=== PATIENT | female | born 1960 | race Caucasian/White ===

== ENCOUNTER 2020-08-01 09:01 | Outpatient (CLI) | payer OTHER, SELFPAY ==
--- NOTE | 2020-08-01 17:54 | WPDMETH ---
Methacholine Challenge This is a methacholine challenge test. The test was performed and interpreted in accordance with the 1999 [employer] guidelines. The test was performed with increasing doses of nebulized methacholine using a 2 minute tidal breathing protocol. The best post-methacholine FEV1 values were used to calculate the change from the post diluent FEV1. Findings: Baseline FEV1 2.00 L, 69% predicted. Post diluent FEV1 1.98 L Post 0.025 mg/ml methacholine FEV1 2.13 L, increased 13% Post 0.25 mg/mL methacholine FEV1 1.79 L, decreased 9% Post 2.5 mg/mL methacholine FEV1 1.38 L, decreased 30% Post albuterol nebulization FEV1 1.83 L Impression: The PC20 is 0.82 mg/ml which is categorized as moderate to severe bronchial hyperresponsiveness. There are no prior methacholine challenge studies for comparison Methacholine Procedure Perform Procedure Performed Methacholine Challenge
== END 2020-08-01 09:02 | disposition home or self-care (01) ==
PROVIDERS: PCP Internal Medicine; Visit Provider Internal Medicine Pulmonary Disease
DX: R06.02 Shortness of breath (principal)
CPT/HCPCS: 94070; J7674

== ENCOUNTER 2021-04-12 10:46 | Emergency (ER) | payer OTHER, SELFPAY ==
[2021-04-12 10:53] VITALS: BP 129/61; PULSE 75; RESP 18; TEMP 36.8; O2SAT 100
--- NOTE | 2021-04-12 11:08 | ED.URI ---
HPI - URI/Sore Throat General Chief Complaint: Upper Respiratory Infection Stated Complaint: aches fatigue cough headache Time Seen by Provider: 04/12/21 11:08 Source: patient, RN notes reviewed and old records reviewed Mode of arrival: ambulatory Limitations: no limitations History of Present Illness HPI Narrative: 60-year-old female presents to the [facility] with complaints of body aches, fatigue, cough and headache. Patient states symptoms started yesterday. Patient states that she was recently in [facility] which is a hotspot for Covid right now. Is concerned about Covid. Has no concerned about influenza at this time. Has had the chills. Has felt febrile. Related Data Home Medications Medication Instructions Recorded Confirmed cetirizine 10 mg tablet 10 mg PO DAILY PRN 07/03/20 01/16/21 cyclobenzaprine 5 mg tablet 5 mg PO TID PRN 07/03/20 01/16/21 multivitamin 1 tablet PO DAILY 07/03/20 01/16/21 hydrocodone 5 mg-acetaminophen 325 1 tablet PO Q6H PRN 07/04/20 01/16/21 mg tablet melatonin 5 mg capsule mg PO DAILY PRN cap 07/04/20 01/16/21 zinc sulfate 50 mg zinc (220 mg) 50 mg PO DAILY 07/04/20 01/16/21 tablet azelastine 137 mcg (0.1 %) nasal 2 spray INTRANASAL DAILY ml 09/21/20 01/16/21 spray aerosol cholecalciferol (vitamin D3) 125 10,000 unit PO WEEKLY cap 09/21/20 01/16/21 mcg (5,000 unit) capsule dicyclomine 20 mg tablet 20 mg PO .prn tablet 09/21/20 01/16/21 docusate sodium 100 mg capsule 100 mg PO DAILY PRN 09/21/20 01/16/21 gabapentin 300 mg capsule 300 mg PO DAILY PRN 09/21/20 01/16/21 Allergies Allergy/AdvReac Type Severity Reaction Status Date / Time No Known Allergies Allergy Unverified 01/16/21 15:09 Review of Systems Review of Systems: All systems reviewed & are unremarkable except as noted in HPI and below Constitutional: Constitutional: Reports as per HPI, Reports chills and Reports fever(s) Eyes: Eyes: Reports no additional eye complaints ENT: Reports system reviewed and no additional complaints, except as documented Cardiovascular: Cardiovascular: Reports no additional cardiovascular complaints Respiratory: Respiratory: Reports no additional respiratory complaints, Denies cough and Denies dyspnea Gastrointestinal: Gastrointestinal: Reports no additional gastrointestinal complaints, Denies abdominal pain, Denies nausea and Denies vomiting Musculoskeletal: Musculoskeletal: Reports as per HPI and Reports myalgias Integumentary/Breasts: Skin/Breast: Reports system reviewed and no additional complaints, except as docu Neurologic: Reports system reviewed and no additional complaints, except as documented Psychiatric: Psychiatric: Reports no additional psychiatric complaints Allergic/Immunologic: Allergic/Immunologic: Reports no additional allergic/immunologic complaints [facility] Past Medical History Medical History Abnormal results of pulmonary function studies Constipation Diarrhea Hyperlipemia Irritable bowel syndrome with constipation Low back pain Lower abdominal pain Myalgia Pain in left knee Pain in right hand Pain in right knee Personal history of colonic polyps Radiculopathy SOB (shortness of breath) Surgical History Surgical History History of colon surgery History of hysterectomy Social History Social History Smoking status: Never smoker Alcohol intake: current Alcohol use details: Social Drinker Comments At the time of my signature, I reviewed and agree with the nursing past medical, surgical, social, and family history. There is no relevant family history pertinent to the patient complaint. Exam Const: General: healthy appearing, no acute distress and alert Nutritional Appearance: well nourished Orientation/consciousness: patient oriented x3 Limitations: no limitations HENMT:
== END 2021-04-12 11:38 | disposition home or self-care (01) ==
PROVIDERS: Emergency Provider Nurse Practitioner; PCP Internal Medicine
DX: B34.9 Viral infection, unspecified (principal); E78.5 Hyperlipidemia, unspecified; Z79.891 Long term (current) use of opiate analgesic
CPT/HCPCS: 99211; G0463

== ENCOUNTER → 2021-04-13 04:08 | Outpatient (CLI) | payer OTHER, SELFPAY ==
[2021-04-16 20:51] LABS: SARS-CoV-2 RNA PCR Negative
== END ==
PROVIDERS: PCP Internal Medicine; Visit Provider Nurse Practitioner
DX: R68.89 Other general symptoms and signs (principal); Z20.822 Contact with and (suspected) exposure to COVID-19
CPT/HCPCS: C9803; U0003; U0005

== ENCOUNTER 2021-09-23 13:26 | Emergency (ER) | payer OTHER, SELFPAY ==
[2021-09-23 13:30] VITALS: BP 126/83; PULSE 78; RESP 16; TEMP 36.6; O2SAT 100
--- NOTE | 2021-09-23 13:30 | ED.FEMALEGU ---
HPI - Female Genitourinary General Chief complaint: Urogenital-Female Stated complaint: poss bladder infect Time Seen by Provider: 09/23/21 13:31 Source: patient Mode of arrival: ambulatory Limitations: no limitations History of Present Illness HPI Narrative: Ms. Ball is a 60-year-old female patient presenting to the clinic today with possible UTI x2-3 days She reports she is having lower abdominal pain, burning with urination, and some low back pain. She reports that she gets urinary tract infections annually. Related Data Home Medications Medication Instructions Recorded Confirmed cetirizine 10 mg tablet (Zyrtec) 10 mg PO DAILY PRN 07/03/20 01/16/21 cyclobenzaprine 5 mg tablet 5 mg PO TID PRN 07/03/20 01/16/21 multivitamin (Daily Multi-Vitamin) 1 tablet PO DAILY 07/03/20 01/16/21 hydrocodone 5 mg-acetaminophen 325 1 tablet PO Q6H PRN 07/04/20 01/16/21 mg tablet melatonin 5 mg capsule mg PO DAILY PRN 07/04/20 01/16/21 zinc sulfate 50 mg zinc (220 mg) 50 mg PO DAILY 07/04/20 01/16/21 tablet azelastine 137 mcg (0.1 %) nasal 2 spray intranasal DAILY 09/21/20 01/16/21 spray aerosol cholecalciferol (vitamin D3) 125 10,000 unit PO WEEKLY 09/21/20 01/16/21 mcg (5,000 unit) capsule dicyclomine 20 mg tablet 20 mg PO .prn 09/21/20 01/16/21 docusate sodium 100 mg capsule 100 mg PO DAILY PRN 09/21/20 01/16/21 gabapentin 300 mg capsule 300 mg PO DAILY PRN 09/21/20 01/16/21 Allergies Allergy/AdvReac Type Severity Reaction Status Date / Time No Known Allergies Allergy Unverified 01/16/21 15:09 Review of Systems Review of Systems: Pertinent positives per HPI. Patient denies any fever, chills, rash, headache, visual changes, dizziness, cough, runny nose, sore throat, shortness of breath, chest pain, palpitations, nausea, vomiting, diarrhea, constipation. PMFSH Past Medical History Medical History Abnormal results of pulmonary function studies Constipation Diarrhea Hyperlipemia Irritable bowel syndrome with constipation Low back pain Lower abdominal pain Myalgia Pain in left knee Pain in right hand Pain in right knee Personal history of colonic polyps Radiculopathy SOB (shortness of breath) Surgical History Surgical History History of colon surgery History of hysterectomy Social History Social History Smoking status: Never smoker Alcohol intake: current Alcohol use details: Social Drinker Comments At the time of my signature, I reviewed and agree with the nursing past medical, surgical, social, and family history. There is no relevant family history pertinent to the patient complaint. Exam Narrative: General: Well-developed, well nourished, in no apparent distress. Head: Normocephalic, atraumatic. Cardio: Regular rate and rhythm, s1 and s2 normal, no murmur appreciated. Resp: Clear to auscultation bilaterally, no rhonchi, rales, wheezing or rubs. Abdomen: Soft, pliable, tenderness to palpation over the suprapubic area, bowel sounds present in all quadrants, no organomegly, no CVAT tenderness. Course Course Emergency Course: Portions of this record may have been created with voice recognition software. Level of Care: Express Care Visit Vital Signs Vital signs: Vital signs reviewed MDM - Female Genitourinary MDM Narrative Medical decision making narrative: At the time of visit patient is resting comfortably on the exam table. UA dip was obtained and patient was positive for protein, blood, nitrate, and leukocytes. I will place patient on a prescription for some Bactrim. Supportive measures were discussed with the patient she voiced understanding of discharge instructions. Differential Diagnosis Differential diagnosis: Likely urinary tract infection and cystitis Discharge Plan Discharge Clinical I
== END 2021-09-23 13:47 | disposition home or self-care (01) ==
PROVIDERS: Emergency Provider Nurse Practitioner Family; PCP Internal Medicine
DX: N30.01 Acute cystitis with hematuria (principal); E78.5 Hyperlipidemia, unspecified
CPT/HCPCS: 81003; 87077; 87086; 87186; 99213; G0463

== ENCOUNTER 2022-02-06 09:39 | Emergency (ER) | payer MEDICARE, MEDICAID, SELFPAY ==
[2022-02-06 09:49] VITALS: BP 124/72; PULSE 78; RESP 16; TEMP 36.5; O2SAT 100
--- NOTE | 2022-02-06 10:17 | ED.FEMALEGU ---
HPI - Female Genitourinary General Chief complaint: Urogenital-Female Stated complaint: sore throat bladder infection Time Seen by Provider: 02/06/22 10:05 Source: patient Mode of arrival: ambulatory Limitations: no limitations History of Present Illness HPI Narrative: 61 year old female who presents to [facility] care with complaints of UTI symptoms for the past 3 days. Patient reports that her urine is cloudy for the past 2 days, she also has had some lower tender abdominal discomfort and also some lower back pain. Patient states also that she had sore throat start last pm for which she has been taking Tylenol and Chloraseptic spray and she also reports she took muscle relaxer for her back discomfort. Patient reports no known fevers, chills or sweat. MD elicited complaint: UTI Pertinent past history: recurrent UTIs Onset (ago): day(s) (3) Location of symptoms: suprapubic, low back and other (sore throat also) Related Data Home Medications Medication Instructions Recorded Confirmed cyclobenzaprine 5 mg tablet 5 mg PO TID PRN Muscle Spasm 07/03/20 02/06/22 multivitamin (Daily Multi-Vitamin 1 tablet PO DAILY 07/03/20 02/06/22 tablet) melatonin 5 mg capsule 5 mg PO DAILY 07/04/20 02/06/22 zinc sulfate 50 mg zinc (220 mg) 50 mg PO DAILY 07/04/20 02/06/22 tablet cholecalciferol (vitamin D3) 125 10,000 unit PO WEEKLY 09/21/20 02/06/22 mcg (5,000 unit) capsule dicyclomine 20 mg tablet 20 mg PO .prn 09/21/20 02/06/22 docusate sodium 100 mg capsule 100 mg PO DAILY PRN Constipation 09/21/20 02/06/22 Allergies Allergy/AdvReac Type Severity Reaction Status Date / Time Penicillins Allergy Rash Verified 02/06/22 09:59 Review of Systems Review of Systems: CONSTITUTIONAL: Denies fever, chills, or sweats. CARDIOVASCULAR: Denies chest pain, palpitations, or edema. RESPIRATORY: Denies cough or dyspnea does state some sore throat pain GASTROINTESTINAL: supra pubic abdominal pain,no nausea, vomiting, or diarrhea. GENITOURINARY: Reports dysuria, frequency, urgency. Denies flank pain or hematuria, states low back curry SKIN: Denies rash or itching. MUSCULOSKELETAL: Positive for low back pain or myalgia. Denies CVA tenderness NEUROLOGIC: Denies headache All systems reviewed & are unremarkable except as noted in HPI and below PMFSH Past Medical History Medical History Abnormal results of pulmonary function studies Constipation Diarrhea Hyperlipemia Irritable bowel syndrome with constipation Low back pain Lower abdominal pain Myalgia Pain in left knee Pain in right hand Pain in right knee Personal history of colonic polyps Radiculopathy SOB (shortness of breath) Surgical History Surgical History History of colon surgery History of hysterectomy Social History Social History Smoking status: Never smoker Alcohol intake: current Alcohol use details: Social Drinker Comments At time of signature, agree with nursing past medical, surgical, social and family history. There is no relevant family history pertinent to the presenting complaint Exam Narrative: GENERAL: Well-appearing, well-nourished, and in no acute distress. HEAD: Normocephalic, atraumatic. NECK: Supple. no lymphadenopathy throat red with post nasal drainage, no lesions or exudates, no tonsil swelling noted. CHEST: Clear to auscultation. No respiratory distress.SAO2 100% on room air HEART: Regular rate and rhythm. No murmur heard. Normal peripheral pulses. ABDOMEN: Soft, nontender, nondistended, normal active bowel sounds. No CVA tenderness. reports back pain. EXTREMITIES: Normal range of motion. No edema. SKIN: Warm, dry, no rash. NEURO: No focal deficits. Alert and oriented x3. Course Course Emergency Course: Patient is aware of diagnosis, understands and agrees to treatment plan.? Antici
== END 2022-02-06 10:39 | disposition home or self-care (01) ==
PROVIDERS: Emergency Provider Registered Nurse; PCP Internal Medicine
DX: N39.0 Urinary tract infection, site not specified (principal); J02.9 Acute pharyngitis, unspecified; E78.5 Hyperlipidemia, unspecified
CPT/HCPCS: 81003; 87077; 87081; 87086; 87186; 87880; 99213; G0463

== ENCOUNTER 2022-03-04 13:56 | Emergency (ER) | payer MEDICARE, MEDICAID, SELFPAY ==
[2022-03-04 14:02] VITALS: BP 119/63; PULSE 71; RESP 20; TEMP 36.9; O2SAT 98
--- NOTE | 2022-03-04 14:09 | ED.FEMALEGU ---
HPI - Female Genitourinary General Chief complaint: Urogenital-Female Stated complaint: bladder infection Time Seen by Provider: 03/04/22 14:20 Source: patient and RN notes reviewed Mode of arrival: ambulatory Limitations: no limitations History of Present Illness HPI Narrative: 61-year-old female presents concern for urinary infection. She reports 2-3 day history of frequency, urgency, dysuria, fatigue, general malaise. She reports history of urinary tract. She reports she was treated with Bactrim 1 month ago for urinary tract infection that she feels mostly resolved. She denies fever, sweats. Reports chills. She denies upper respiratory symptoms, abdominal pain, vomiting or diarrhea. She denies cough, shortness of breath MD elicited complaint: UTI Related Data Home Medications Medication Instructions Recorded Confirmed multivitamin (Daily Multi-Vitamin 1 tablet PO DAILY 07/03/20 03/04/22 tablet) melatonin 5 mg capsule 5 mg PO DAILY 07/04/20 03/04/22 zinc sulfate 50 mg zinc (220 mg) 50 mg PO DAILY 07/04/20 02/06/22 tablet cholecalciferol (vitamin D3) 125 10,000 unit PO WEEKLY 09/21/20 03/04/22 mcg (5,000 unit) capsule docusate sodium 100 mg capsule 100 mg PO DAILY PRN Constipation 09/21/20 03/04/22 Allergies Allergy/AdvReac Type Severity Reaction Status Date / Time Penicillins Allergy Rash Verified 03/04/22 14:20 Review of Systems Review of Systems: CONSTITUTIONAL: Reports malaise, chills. Denies sweats, or fever. CARDIOVASCULAR: Denies chest pain, palpitations, or edema. RESPIRATORY: Denies cough or dyspnea. GASTROINTESTINAL: Denies abdominal pain, nausea, vomiting, diarrhea GENITOURINARY: Reports dysuria, frequency, urgency, suprapubic discomfort. Denies flank pain or hematuria. SKIN: Denies rash or itching. MUSCULOSKELETAL: Denies back pain or myalgia. All systems reviewed & are unremarkable except as noted in HPI and below PMFSH Past Medical History Medical History Abnormal results of pulmonary function studies Constipation Diarrhea Hyperlipemia Irritable bowel syndrome with constipation Low back pain Lower abdominal pain Myalgia Pain in left knee Pain in right hand Pain in right knee Personal history of colonic polyps Radiculopathy SOB (shortness of breath) Surgical History Surgical History History of colon surgery History of hysterectomy Social History Social History Smoking status: Never smoker Alcohol intake: current Alcohol use details: Social Drinker Comments At time of signature, agree with nursing past medical, surgical, social and family history. There is no relevant family history pertinent to the presenting complaint Exam Narrative: GENERAL: Well-appearing, well-nourished, and in no acute distress. HEAD: Normocephalic. EYES: PERRLA, conjunctivae clear. NECK: Supple. No lymphadenopathy CHEST: Clear to auscultation. No respiratory distress. HEART: Regular rate and rhythm. ABDOMEN: Soft, nontender upon palpation, nondistended, normal active bowel sounds, no palpable or pulsatile masses, no guarding. No CVA tenderness SKIN: Warm, dry, no rash. NEURO: Alert and oriented x3. PSYCH: Normal mood and affect Course Course Emergency Course: Discussed UA findings with the patient, discussed waiting for culture to start antibiotic probiotic now. Patient would prefer to started now given that she is feeling poorly. Patient is aware of diagnosis, understands and agrees to treatment plan. Anticipatory guidance given. Patient agrees to follow-up as directed and is aware of reasons to seek care at the emergency department. Portions of this record may have been created with voice recognition software Level of Care: Express Care Visit Vital Signs Vital signs: Reviewed. MDM - Female Genitourinary
== END 2022-03-04 14:48 | disposition home or self-care (01) ==
PROVIDERS: Emergency Provider Nurse Practitioner; PCP Internal Medicine
DX: R35.0 Frequency of micturition (principal); R30.0 Dysuria; R39.15 Urgency of urination; E78.5 Hyperlipidemia, unspecified
CPT/HCPCS: 81003; 87086; 87088; 99213; G0463

== ENCOUNTER 2022-06-27 14:52 | Emergency (ER) | payer MEDICARE, MEDICAID, SELFPAY ==
[2022-06-27 15:01] VITALS: BP 135/84; PULSE 69; RESP 18; TEMP 36.5; O2SAT 99
--- NOTE | 2022-06-27 15:02 | ED.GENADULT ---
HPI - General Adult General Chief complaint: Urogenital-Female Stated complaint: Urinary Problem Source: patient and RN notes reviewed History of Present Illness HPI narrative: 61 year female presents to urgent care with complaints of dysuria for the last month. Patient states she began taking azo pills with minimal relief and then has been taking cranberry pills for the last 3 weeks. Patient states her symptoms are intermittent. Denies any fevers, chills, chest pain, shortness of breath, abdominal pain, or vomiting. Some parts of this dictation were generated by voice recognition software and may contain typographical and/or grammatical inaccuracies. Related Data Home Medications Medication Instructions Recorded Confirmed multivitamin (Daily Multi-Vitamin 1 tablet PO DAILY 07/03/20 03/04/22 tablet) albuterol sulfate 90 mcg/actuation inhalation 06/27/22 aerosol inhaler Allergies Allergy/AdvReac Type Severity Reaction Status Date / Time Penicillins Allergy Rash Verified 03/04/22 14:20 Review of Systems Review of Systems: CONSTITUTIONAL: Denies fever, chills, or sweats. EYES: Denies visual changes, redness, or discharge. ENT: Denies otalgia and sore throat CARDIOVASCULAR: Denies chest pain, palpitations, or edema. RESPIRATORY: Denies cough or dyspnea. GASTROINTESTINAL: Denies abdominal pain, nausea, vomiting, or diarrhea. GENITOURINARY: Dysuria SKIN: Denies rash or itching. MUSCULOSKELETAL: Denies back pain, joint pain, or myalgia. NEUROLOGIC: Denies headache, numbness, or weakness. [facility] Past Medical History Medical History Abnormal results of pulmonary function studies Constipation Diarrhea Hyperlipemia Irritable bowel syndrome with constipation Low back pain Lower abdominal pain Myalgia Pain in left knee Pain in right hand Pain in right knee Personal history of colonic polyps Radiculopathy SOB (shortness of breath) Surgical History Surgical History History of colon surgery History of hysterectomy Social History Social History Smoking status: Never smoker Alcohol intake: current Alcohol use details: Social Drinker Comments At the time of my signature, I reviewed and agree with the nursing past medical, surgical, social, and family history. There is no relevant family history pertinent to the patient complaint. Exam Narrative: GENERAL: This is a well-nourished, well-developed patient, in no apparent distress. HEAD: normocephalic, atraumatic. EYES: PERRL. Sclera clear/white. Vision is grossly intact. EARS: External ears normal, auditory canals clear and without drainage, TMs normal without perforation. Hearing grossly intact. NOSE: External nose normal with no obvious nasal discharge, nares without redness, no rhinorrhea. THROAT: Mucous membranes moist, posterior pharynx clear. NECK: Neck supple, non-tender without lymphadenopathy, masses or thyromegaly. CARDIOVASCULAR: Regular rate and rhythm without murmurs, gallops, or rubs. RESPIRATORY: Clear to auscultation. Breath sounds equal bilaterally. No wheezes, rales, or rhonchi. GASTROINTESTINAL: Abdomen soft, non-tender, nondistended. Bowel sounds are active. No hepato-splenomegaly, or palpable masses. No guarding. SKIN: warm, intact with no suspicious lesions or rash, good texture and turgor. NEURO: awake, alert, and oriented to person, place and time. There were no obvious focal neurologic abnormalities. EXTREMITIES: No clubbing, cyanosis, or edema. No joint tenderness, effusion, or edema noted. BACK: Nontender without deformity or crepitance. No flank tenderness. Course Course Level of Care: Express Care Visit Vital Signs Vital signs: Vital Signs Temperature 97.7 F 06/27/22 15:01 Pulse Rate 69 06/27/22 15:01 Respiratory Rate 18 06/27/22 15:01 Blood Pres
== END 2022-06-27 15:37 | disposition home or self-care (01) ==
PROVIDERS: Emergency Provider Nurse Practitioner Family; PCP Internal Medicine
DX: R30.0 Dysuria (principal)
CPT/HCPCS: 81003; 87086; 87088; 99213; G0463

== ENCOUNTER 2023-01-03 09:08 | Emergency (ER) | payer MEDICARE, MEDICAID, SELFPAY ==
[2023-01-03 09:21] VITALS: BP 117/77; PULSE 66; RESP 16; TEMP 36.3; O2SAT 99
[2023-01-03 09:22] VITALS: BP 117/77; PULSE 66; RESP 16; TEMP 36.3; O2SAT 99
--- NOTE | 2023-01-03 09:39 | ED.FEMALEGU ---
HPI - Female Genitourinary General Chief complaint: Urogenital-Female Stated complaint: Urinary Problem Time Seen by Provider: 01/03/23 09:39 Source: patient, RN notes reviewed and old records reviewed Mode of arrival: ambulatory Limitations: no limitations History of Present Illness HPI Narrative: 62 year old female since to Express Care with complaints of lower back pain, fatigue, pain with urination and also burning with urination with highest temp noted 99.9F since Friday. Patient reports that she has some frequency and urgency and also some suprapubic tenderness. Patient denies any concern for STDs denies any vaginal discharge or any vaginal itching. Patient denies any nausea vomiting or diarrhea MD elicited complaint: UTI Pertinent past history: other (past UTI) Onset (ago): day(s) (2) Severity scale (1-10): 5 Quality of pain: burning and aching Vaginal discharge: none Related Data Home Medications Medication Instructions Recorded Confirmed multivitamin (Daily Multi-Vitamin 1 tablet PO DAILY 07/03/20 01/03/23 tablet) celecoxib 200 mg capsule mg 01/03/23 docusate sodium 100 mg capsule mg PO 01/03/23 folic acid 1 mg tablet 01/03/23 methotrexate sodium 2.5 mg tablet mg 01/03/23 omeprazole 40 mg capsule,delayed mg 01/03/23 release Allergies Allergy/AdvReac Type Severity Reaction Status Date / Time Penicillins Allergy Rash Verified 01/03/23 09:34 Review of Systems Review of Systems: CONSTITUTIONAL: Denies fever, chills, or sweats. CARDIOVASCULAR: Denies chest pain, palpitations, or edema. RESPIRATORY: Denies cough or dyspnea. GASTROINTESTINAL: Supra pubic abdominal pain, no nausea, vomiting, or diarrhea. GENITOURINARY: Reports dysuria, frequency, urgency. Denies flank pain or hematuria. SKIN: Denies rash or itching. MUSCULOSKELETAL: Reports low back pain or myalgia. Denies CVA tenderness NEUROLOGIC: Denies headache All systems reviewed & are unremarkable except as noted in HPI and below PMFSH Past Medical History Medical History Abnormal results of pulmonary function studies Constipation Diarrhea Hyperlipemia Irritable bowel syndrome with constipation Low back pain Lower abdominal pain Myalgia Pain in left knee Pain in right hand Pain in right knee Personal history of colonic polyps Radiculopathy SOB (shortness of breath) Surgical History Surgical History History of colon surgery History of hysterectomy Social History Social History Smoking status: Never smoker Alcohol intake: current Alcohol use details: Social Drinker Comments At time of signature, agree with nursing past medical, surgical, social and family history. There is no relevant family history pertinent to the presenting complaint Exam Narrative: GENERAL: Well-appearing, well-nourished, and in no acute distress. HEAD: Normocephalic, atraumatic. NECK: Supple. no lymphadenopathy CHEST: Clear to auscultation. No respiratory distress.SAO2 99% on room air HEART: Regular rate and rhythm. No murmur heard. Normal peripheral pulses. ABDOMEN: Soft, supra pubic tender, nondistended, normal active bowel sounds. No CVA tenderness, reports low back pain dysuria, frequency and urgency of urination. EXTREMITIES: Normal range of motion. No edema. SKIN: Warm, dry, no rash. NEURO: No focal deficits. Alert and oriented x3. Course Course Emergency Course: Patient is aware of diagnosis, understands and agrees to treatment plan.? Anticipatory guidance given.? Patient agrees to follow-up as directed and is aware of reasons to seek care at the emergency department. Portions of this record may have been created with voice recognition software Level of Care: Express Care Visit Vital Signs Vital signs: Vital Signs Temperature 36.3 C L 01/03/23 09:2
== END 2023-01-03 10:06 | disposition home or self-care (01) ==
PROVIDERS: Emergency Provider Registered Nurse; PCP Internal Medicine
DX: N39.0 Urinary tract infection, site not specified (principal); E78.5 Hyperlipidemia, unspecified
CPT/HCPCS: 81003; 87077; 87086; 87186; 99213; G0463

== ENCOUNTER 2023-08-22 09:03 | Emergency (ER) | payer MEDICARE, MEDICAID, SELFPAY ==
--- NOTE | 2023-08-22 09:06 | ED.URI ---
HPI - URI/Sore Throat General Chief Complaint: Urogenital-Female Stated Complaint: poss bladder infection/throat Time Seen by Provider: 08/22/23 10:08 Source: patient, RN notes reviewed and old records reviewed Mode of arrival: ambulatory Limitations: no limitations History of Present Illness HPI Narrative: 62-year-old female presents to the [facility] with complaints of urinary symptoms since Friday, 2 days. Reports burning, urgency and low back discomfort. Patient denies any fevers, nausea vomiting. Patient states that she stop taking methotrexate because she read on [employer] that it causes UTIs. Onset (ago): day(s) (2) Treatments prior to arrival: none Related Data Home Medications Medication Instructions Recorded Confirmed multivitamin (Daily Multi-Vitamin 1 tablet PO DAILY 07/03/20 08/22/23 tablet) celecoxib 200 mg capsule 200 mg PO DAILY 01/03/23 08/22/23 docusate sodium 100 mg capsule 100 mg PO DAILY 01/03/23 08/22/23 folic acid 1 mg tablet 1 mg PO DAILY 01/03/23 08/22/23 omeprazole 40 mg capsule,delayed 40 mg PO DAILY 01/03/23 08/22/23 release cetirizine 10 mg tablet (Zyrtec) 10 mg PO DAILY 08/22/23 08/22/23 cyclobenzaprine 5 mg tablet 5 mg PO TID 08/22/23 08/22/23 methylprednisolone 4 mg tablets in 4 mg PO PRN PRN Pain 08/22/23 08/22/23 a dose pack Allergies Allergy/AdvReac Type Severity Reaction Status Date / Time Penicillins Allergy Rash Verified 08/22/23 10:03 Review of Systems Review of Systems: All systems reviewed & are unremarkable except as noted in HPI and below Constitutional: Constitutional: Reports no additional constitutional complaints Eyes: Eyes: Reports no additional eye complaints ENT: Reports system reviewed and no additional complaints, except as documented Cardiovascular: Cardiovascular: Reports no additional cardiovascular complaints, Denies chest pain and Denies dyspnea Respiratory: Respiratory: Reports no additional respiratory complaints, Denies chest congestion, Denies cough and Denies dyspnea Gastrointestinal: Gastrointestinal: Reports no additional gastrointestinal complaints, Denies abdominal pain, Denies nausea and Denies vomiting Genitourinary: Genitourinary: Reports as per HPI and Reports dysuria Musculoskeletal: Musculoskeletal: Reports no additional musculoskeletal complaints Integumentary/Breasts: Skin/Breast: Reports system reviewed and no additional complaints, except as docu Neurologic: Reports system reviewed and no additional complaints, except as documented Psychiatric: Psychiatric: Reports no additional psychiatric complaints Allergic/Immunologic: Allergic/Immunologic: Reports no additional allergic/immunologic complaints PMFSH Past Medical History Medical History Abnormal results of pulmonary function studies Constipation Diarrhea Hyperlipemia Irritable bowel syndrome with constipation Low back pain Lower abdominal pain Myalgia Pain in left knee Pain in right hand Pain in right knee Personal history of colonic polyps Radiculopathy SOB (shortness of breath) Surgical History Surgical History History of colon surgery History of hysterectomy Social History Social History Smoking status: Never smoker Alcohol intake: current Alcohol use details: Social Drinker Comments At the time of my signature, I reviewed and agree with the nursing past medical, surgical, social, and family history. There is no relevant family history pertinent to the patient complaint. Exam Const: General: cooperative, healthy appearing, comfortable, no acute distress, well developed, alert and well nourished Nutritional Appearance: well nourished Orientation/consciousness: patient oriented x3 Limitations: no limitations HENMT: Head: normal to inspection Ears: hearing grossly normal bilater
[2023-08-22 09:15] VITALS: BP 148/75; PULSE 73; RESP 18; TEMP 37; O2SAT 99
== END 2023-08-22 10:26 | disposition home or self-care (01) ==
PROVIDERS: Emergency Provider Nurse Practitioner; PCP Internal Medicine
DX: N39.0 Urinary tract infection, site not specified (principal); B96.4 Proteus (mirabilis) (morganii) as the cause of diseases classified elsewhere; R09.82 Postnasal drip
CPT/HCPCS: 81003; 87077; 87081; 87086; 87088; 87186; 87880; 99213; G0463

== ENCOUNTER 2023-09-28 16:49 | Emergency (ER) | payer MEDICARE, MEDICAID, SELFPAY ==
[2023-09-28 17:01] VITALS: BP 140/76; PULSE 69; RESP 16; TEMP 36.6; O2SAT 99
--- NOTE | 2023-09-28 17:02 | ED.URI ---
HPI - URI/Sore Throat General Chief Complaint: Upper Respiratory Infection Stated Complaint: throat/congestion Time Seen by Provider: 09/28/23 17:03 History of Present Illness HPI Narrative: 62-year-old female presented for complaint of sore throat, headache, fatigue, cough and congestion. Onset 2 days. She has taken nighttime cough medicine, Mucinex and a dose of erythromycin she had left over from previous illness for symptoms. Denies shortness of breath, wheezing nausea vomiting, diarrhea, fevers or chills. Related Data Home Medications Medication Instructions Recorded Confirmed multivitamin (Daily Multi-Vitamin 1 tablet PO DAILY 07/03/20 08/22/23 tablet) celecoxib 200 mg capsule 200 mg PO DAILY 01/03/23 08/22/23 folic acid 1 mg tablet 1 mg PO DAILY 01/03/23 08/22/23 omeprazole 40 mg capsule,delayed 40 mg PO DAILY 01/03/23 08/22/23 release cetirizine 10 mg tablet (Zyrtec) 10 mg PO DAILY 08/22/23 08/22/23 cyclobenzaprine 5 mg tablet 5 mg PO TID 08/22/23 08/22/23 Allergies Allergy/AdvReac Type Severity Reaction Status Date / Time Penicillins Allergy Rash Verified 08/22/23 10:03 Review of Systems Review of Systems: CONSTITUTIONAL: Denies body aches, fever, chills, or sweats. EYES: Denies visual changes, redness, or discharge. ENT: reports rhinorrhea, sore throat denies otalgia. CARDIOVASCULAR: Denies chest pain, palpitations, or edema. RESPIRATORY: reports cough Denies dyspnea. GASTROINTESTINAL: Denies abdominal pain, nausea, vomiting, or diarrhea. SKIN: Denies rash, itching, or wounds. MUSCULOSKELETAL: Denies back pain, joint pain, or myalgia. NEUROLOGIC: Denies headache PMFSH Past Medical History Medical History Abnormal results of pulmonary function studies Constipation Diarrhea Hyperlipemia Irritable bowel syndrome with constipation Low back pain Lower abdominal pain Myalgia Pain in left knee Pain in right hand Pain in right knee Personal history of colonic polyps Radiculopathy SOB (shortness of breath) Surgical History Surgical History History of colon surgery History of hysterectomy Social History Social History Smoking status: Never smoker Alcohol intake: current Alcohol use details: Social Drinker Exam Narrative: GENERAL: well-appearing, no acute distress. EYES: conjunctivae clear ENT: Mucous membranes moist. TM pearly francisco with normal light reflex bilaterally; no tragal tenderness. Oropharynx erythematous without lesions. Tonsils absent. No drooling, no hoarseness, no trismus, uvula midline. No tripod positioning, hot potato voice, or soft palate swelling. NECK: Supple. No lymphadenopathy CHEST: Clear to auscultation, breath sounds equal. No respiratory distress, speaks in full sentences. HEART: Regular rate and rhythm. No murmur heard. SKIN: Warm, dry, no rash. NEURO: Alert and oriented x3. Course Course Emergency Course: Patient is aware of diagnosis, understands and agrees to treatment plan. Anticipatory guidance given. Patient agrees to follow-up as directed and is aware of reasons to seek care at the emergency department. Portions of this record may have been created with voice recognition software Level of Care: Express Care Visit MDM - URI/Sore Throat MDM Narrative Medical decision making narrative: neg strep result reviewed with pt. Advise supportive treatments. Patient is appropriate for outpatient treatment and follow-up. Differential Diagnosis Differential diagnosis: Likely upper respiratory infection, viral infection and pharyngitis Discharge Plan Discharge Clinical Impression: Upper respiratory infection Patient Disposition: Home, Self-Care Condition: Stable Instructions: Antibiotic Form, Upper Respiratory Infection (ED) Additional Instructions:
== END 2023-09-28 17:38 | disposition home or self-care (01) ==
PROVIDERS: Emergency Provider Nurse Practitioner Family; PCP Internal Medicine
DX: J06.9 Acute upper respiratory infection, unspecified (principal); E78.5 Hyperlipidemia, unspecified
CPT/HCPCS: 87081; 87880; 99213; G0463

== ENCOUNTER 2024-03-20 13:06 | Emergency (ER) | payer MEDICARE, MEDICAID, SELFPAY ==
[2024-03-20 13:14] VITALS: BP 115/69; PULSE 79; RESP 16; TEMP 36.6; O2SAT 100
--- NOTE | 2024-03-20 13:31 | ED.URI ---
HPI - URI/Sore Throat General Chief Complaint: Upper Respiratory Infection Stated Complaint: Cough/Congestion/Sore Throat/Ear Pain History of Present Illness HPI Narrative: Patient presents with a cough and nasal congestion for the past 10 days. No shortness of breath no chest pain patient has taken multiple [id number] some medicines for her symptoms with no relief. Related Data Home Medications Medication Instructions Recorded Confirmed multivitamin (Daily Multi-Vitamin 1 tablet PO DAILY 07/03/20 08/22/23 tablet) celecoxib 200 mg capsule 200 mg PO DAILY 01/03/23 08/22/23 folic acid 1 mg tablet 1 mg PO DAILY 01/03/23 08/22/23 omeprazole 40 mg capsule,delayed 40 mg PO DAILY 01/03/23 08/22/23 release cetirizine 10 mg tablet (Zyrtec) 10 mg PO DAILY 08/22/23 08/22/23 cyclobenzaprine 5 mg tablet 5 mg PO TID 08/22/23 08/22/23 albuterol 90 mcg-budesonide 80 inh inhalation 03/20/24 mcg/actuation HFA aerosol inhaler (Airsupra) estradiol 0.05 mg/24 hr semiweekly 03/20/24 transdermal patch hydroxychloroquine 200 mg tablet mg PO 03/20/24 prednisone 5 mg tablet mg 03/20/24 valacyclovir 500 mg tablet mg 03/20/24 Allergies Allergy/AdvReac Type Severity Reaction Status Date / Time Penicillins Allergy Rash Verified 03/20/24 13:07 Review of Systems Review of Systems: CONSTITUTIONAL: Denies chills, or sweats. Reports fever and generalized body aches EYES: Denies visual changes, redness, or discharge. ENT: Denies otalgia. Reports nasal congestion runny nose and sore throat CARDIOVASCULAR: Denies chest pain, palpitations, or edema. RESPIRATORY: Denies dyspnea. Reports occasional cough GASTROINTESTINAL: Denies abdominal pain, nausea, vomiting, or diarrhea. GENITOURINARY: Denies dysuria or hematuria. SKIN: Denies rash or itching. MUSCULOSKELETAL: Denies back pain, joint pain, or myalgia. Reports generalized body aches NEUROLOGIC: Denies headache, numbness, or weakness. PSYCHIATRIC: Denies anxiety or depression. [facility] Past Medical History Medical History Abnormal results of pulmonary function studies Constipation Diarrhea Hyperlipemia Irritable bowel syndrome with constipation Low back pain Lower abdominal pain Myalgia Pain in left knee Pain in right hand Pain in right knee Personal history of colonic polyps Radiculopathy SOB (shortness of breath) Surgical History Surgical History History of colon surgery History of hysterectomy Social History Social History Smoking status: Never smoker Alcohol intake: current Alcohol use details: Social Drinker Comments At time of signature, agree with nursing past medical, surgical, social and family history. There is no relevant family history pertinent to the presenting complaint Exam Narrative: The patient is a well-developed, well-nourished in no acute distress. SKIN: Skin is warm and dry without erythema, swelling or exudate. There is good turgor. No tenting. HEAD: Atraumatic. Normocephalic. No temporal or scalp tenderness. EYES: Moist and bright. Sclera and conjunctivae normal. No discharge. PERRLA. Extraocular motions intact. Gross visual acuity intact. EARS: Pinna is normal shape and contour. Clear external auditory canals. TM pearly francis with good cone of light, no erythema or suppuration. Bilateral cerumen noted no gross hearing deficit. NOSE: pink, moist mucosa with good air movement. Clear rhinorrhea without nasal flaring. Septum midline. Mouth: moist mucous membranes. THROAT; mild erythema noted to posterior oropharynx with moderate postnasal drainage. Without exudate or ulceration.. Uvula midline. Normal movement of soft palate. NECK: Supple and nontender with full range of motion without discomfort. No meningeal signs. LUNGS: Equal and bilateral breath sounds without wheezes, rales or rhonchi. CHEST: The chest wall is without retractions or use of accessory muscles. HEART: Has a regular rate and rhythm without murmur, gallops, click or rub. ABDOMEN: Soft, nontender with positive active bowel sounds. No rebound tenderness. EXTREMITIES: Without cyanosis, clubbing or edema. Equal 2+ distal pulses and 2 second capillary refill noted. NEUROLOGIC: alert, active, . The patient moves all extremities with normal muscle strength. Normal muscle tone is noted. Normal coordination is noted. NO focal neurological findings noted. Course Course Level of Care: Express Care Visit Vital Signs Vital signs: Vital Signs Temperature 36.6 C 03/20/24 13:14 Pulse Rate 79 03/20/24 13:14 Respiratory Rate 16 03/20/24 13:14 Blood Pressure 115/69 03/20/24 13:14 Pulse Oximetry 100 03/20/24 13:14 Oxygen Delivery Room Air 03/20/24 13:14 Temperature 36.6 C 03/20/24 13:14 Pulse Rate 79 03/20/24 13:14 Respiratory Rate 16 03/20/24 13:14 Blood Pressure 115/69 03/20/24 13:14 Pulse Oximetry 100 03/20/24 13:14 Oxygen Delivery Room Air 03/20/24 13:14 Discharge Plan Discharge Clinical Impression: Asthma Patient Disposition: Home, Self-Care Condition: Stable Instructions: Antibiotic Form Additional Instructions: Increase fluids and rest 1. Bronchitis will generally resolve on it's own and may take a few weeks. Bronchitis is usually caused by a virus, but sometimes it may be bacterial. Antibiotics generally do not help bronchitis go away faster. Yellow or green mucous, does not always mean bacterial. If you are prescribed an antibiotic for your symptoms be sure to take the entire course of antibioitics. Take with food. It is also suggested to take with yogurt or a probiotic to decrease GI side effects. You may also be prescribed a steroid, if so, be sure to take entire course, first thing in the morning with food. 2. Rest and drink lots of fluids. Maintain a good diet, with foods rich in vitamins and minerals, and lots of fruits and vegetables. 3. Drinking hot tea, warm tea with honey, sucking on cough drops or hard candy, throat lozenges may help with sore throat. 4. OTC cough and cold medications are okay to take for your symptoms, including Mucinex expectorant. 5. If you have high BP, Coricidin HBP is behind the counter , you may ask your pharmacist for this. Otherwise, avoid medications that have a D at the end or a decongestant in them. These medications may increase your BP. 6. Breathing in warm, moist air, such as in the shower or a humidifier at your bedside or in your home. 7. Avoid smoking or being around those who smoke. 8. Protect yourself and others, cover your mouth when you cough and sneeze, and always wash your hands to prevent the spread of germs, if you are unable to, use hand garment tag stringer. . . Prescriptions: New cefdinir 300 mg capsule 300 mg PO Q12H 7 Days Qty: 14 0RF No Action celecoxib 200 mg capsule 200 mg PO DAILY omeprazole 40 mg capsule,delayed release(DR/EC) 40 mg PO DAILY folic acid 1 mg tablet 1 mg PO DAILY cetirizine [Zyrtec] 10 mg Tablet 10 mg PO DAILY cyclobenzaprine 5 mg Tablet 5 mg PO TID prednisone 5 mg tablet estradiol 0.05 mg/24 hr patch semiweekly valacyclovir 500 mg tablet hydroxychloroquine 200 mg tablet PO Airsupra 90-80 mcg/actuation HFA aerosol inhaler INHALATION multivitamin [Daily Multi-Vitamin] Tablet 1 tablet PO DAILY montelukast 10 mg tablet 10 mg PO DAILY Qty: 30 6RF Follow-up/Referrals: Douglas,Kris Valdez MD [Primary Care Provider] -
== END 2024-03-20 13:35 | disposition home or self-care (01) ==
PROVIDERS: Emergency Provider Nurse Practitioner Family; PCP Internal Medicine
DX: J45.909 Unspecified asthma, uncomplicated (principal); E78.5 Hyperlipidemia, unspecified; Z79.899 Other long term (current) drug therapy
CPT/HCPCS: 99213; G0463

== ENCOUNTER 2024-03-22 12:11 | Emergency (ER) | payer MEDICARE, MEDICAID, SELFPAY ==
[2024-03-22 12:15] VITALS: BP 122/58; PULSE 74; RESP 16; TEMP 36.7; O2SAT 100
--- NOTE | 2024-03-22 12:20 | ED.NAVMDI ---
HPI - Nausea/Vomiting/Diarrhea General Chief complaint: Upper Respiratory Infection Stated complaint: Diarrhea Time Seen by Provider: 03/22/24 12:35 Source: patient and RN notes reviewed Mode of arrival: ambulatory Limitations: no limitations History of Present Illness HPI Narrative: 63-year-old female presents with concern for diarrhea after taking an antibiotic. She reports she was seen here 3 days ago and was prescribed an antibiotic for asthma and bronchitis. She had been sick for 2 weeks. Reports she has been taking the antibiotic and has been having a lot of diarrhea. She is requesting a new antibiotic. She reports she takes prednisone daily for her rheumatoid arthritis. She reports she has been using her albuterol inhaler. She denies shortness of breath. She reports she has been feeling generally unwell, has not measured a fever. MD elicited complaint: diarrhea Related Data Home Medications Medication Instructions Recorded Confirmed multivitamin (Daily Multi-Vitamin 1 tablet PO DAILY 07/03/20 03/22/24 tablet) celecoxib 200 mg capsule 200 mg PO DAILY 01/03/23 03/22/24 folic acid 1 mg tablet 1 mg PO DAILY 01/03/23 03/22/24 omeprazole 40 mg capsule,delayed 40 mg PO DAILY 01/03/23 03/22/24 release cetirizine 10 mg tablet (Zyrtec) 10 mg PO DAILY 08/22/23 03/22/24 cyclobenzaprine 5 mg tablet 5 mg PO TID PRN Muscle Spasm 08/22/23 03/22/24 albuterol 90 mcg-budesonide 80 2 inh inhalation Q4-6H PRN 03/20/24 03/22/24 mcg/actuation HFA aerosol inhaler Shortness Of Breath Or Wheezing (Airsupra) estradiol 0.05 mg/24 hr semiweekly 0.05 mg transdermal 2XW 03/20/24 03/22/24 transdermal patch hydroxychloroquine 200 mg tablet 200 mg PO DAILY 03/20/24 03/22/24 prednisone 5 mg tablet 5 - 10 mg PO DAILY 03/20/24 03/22/24 estradiol 1 mg tablet 1 mg PO DAILY 03/22/24 03/22/24 Allergies Allergy/AdvReac Type Severity Reaction Status Date / Time Penicillins Allergy Rash Verified 03/22/24 12:32 Review of Systems Review of Systems: CONSTITUTIONAL: Denies malaise, chills, sweats, or fever. EYES: Denies visual changes, redness, or discharge. ENT: Denies rhinorrhea, congestion, sinus pain, otalgia and sore throat. CARDIOVASCULAR: Denies chest pain, palpitations, or edema. RESPIRATORY: Reports cough. Denies dyspnea. GASTROINTESTINAL: Denies abdominal pain, nausea, vomiting. Reports diarrhea SKIN: Denies rash or itching. MUSCULOSKELETAL: Denies myalgia. NEUROLOGIC: Denies headache. All systems reviewed & are unremarkable except as noted in HPI and below PMFSH Past Medical History Medical History Abnormal results of pulmonary function studies Constipation Diarrhea Hyperlipemia Irritable bowel syndrome with constipation Low back pain Lower abdominal pain Myalgia Pain in left knee Pain in right hand Pain in right knee Personal history of colonic polyps Radiculopathy SOB (shortness of breath) Surgical History Surgical History History of colon surgery History of hysterectomy Social History Social History Smoking status: Never smoker Alcohol intake: current Alcohol use details: Social Drinker Comments At time of signature, agree with nursing past medical, surgical, social and family history. There is no relevant family history pertinent to the presenting complaint Exam Narrative: GENERAL: Well-appearing, well-nourished, and in no acute distress. HEAD: Normocephalic EYES: PERRLA, conjunctivae clear ENT: Nares clear. Mucous membranes moist. TM pearly francisco with dull light reflex bilaterally; no tragal tenderness. Oropharynx not erythematous without lesions. Tonsils not enlarged and without exudate, no drooling, no hoarseness, no trismus, uvula midline. NECK: Supple. No lymphadenopathy CHEST: Clear to auscultation, breath sounds equal. No wheezing, rhonchi, rales, or stridor. No respiratory distress, speaks in full sentences. HEART: Regular rate and rhythm. No murmur heard. SKIN: Warm, dry, no rash. NEURO: Alert and oriented x3. PSYCH: Normal mood and affect Course Course Emergency Course: Patient is aware of diagnosis, understands and agrees to treatment plan. Anticipatory guidance given. Patient agrees to follow-up as directed and is aware of reasons to seek care at the emergency department. Portions of this record may have been created with voice recognition software Level of Care: Express Care Visit Vital Signs Vital signs: Reviewed. MDM - Nausea/Vomiting/Diarrhea Lab Data Attestation: I reviewed the patient's lab results. Critical Care Time Critical Care Time Critical Care Time: No Discharge Plan Discharge Clinical Impression: Lower respiratory tract infection Patient Disposition: Home, Self-Care Condition: Stable Instructions: Antibiotic Form, Asthma (ED) Additional Instructions: 1) Please follow-up with your primary care doctor in the next 1-2 days. 2) If you have any worsening of symptoms or any other urgent concerns please go to the ER. 3) stop taking your previously prescribed antibiotic and start taking doxycycline. Please continue taking your home medications as usual. Please use your inhaler as needed for wheezing, shortness of breath. 4) Please read and follow information included in discharge instructions. Prescriptions: New doxycycline monohydrate 100 mg tablet 100 mg PO BID 7 Days Qty: 14 0RF No Action celecoxib 200 mg capsule 200 mg PO DAILY omeprazole 40 mg capsule,delayed release(DR/EC) 40 mg PO DAILY folic acid 1 mg tablet 1 mg PO DAILY cetirizine [Zyrtec] 10 mg Tablet 10 mg PO DAILY cyclobenzaprine 5 mg Tablet 5 mg PO TID PRN (Reason: Muscle Spasm) prednisone 5 mg tablet 5 - 10 mg PO DAILY estradiol 0.05 mg/24 hr patch semiweekly 0.05 mg transdermal 2XW hydroxychloroquine 200 mg tablet 200 mg PO DAILY Airsupra 90-80 mcg/actuation HFA aerosol inhaler 2 inh INHALATION Q4-6H PRN (Reason: Shortness Of Breath Or Wheezing) estradiol 1 mg tablet 1 mg PO DAILY multivitamin [Daily Multi-Vitamin] Tablet 1 tablet PO DAILY montelukast 10 mg tablet 10 mg PO DAILY Qty: 30 6RF Follow-up/Referrals: Douglas,Kris Valdez MD [Primary Care Provider] - Time of Disposition: 12:49
[2024-03-22 12:32] VITALS: BP 122/58; PULSE 74; RESP 16; TEMP 36.7; O2SAT 100
== END 2024-03-22 12:50 | disposition home or self-care (01) ==
PROVIDERS: Emergency Provider Nurse Practitioner; PCP Internal Medicine
DX: J22 Unspecified acute lower respiratory infection (principal); E78.5 Hyperlipidemia, unspecified; M06.9 Rheumatoid arthritis, unspecified
CPT/HCPCS: 99213; G0463